=== PATIENT | male | born 1960 | race Caucasian/White ===

== ENCOUNTER → 2016-10-26 | Outpatient (CLI) | payer OTHER ==
[~2016-10-26] VITALS: Ht 180.3 cm; Wt 98.4 kg
[~2016-10-26] MED LIST: LIDOCAINE 2% INJ 100 MG/5 ML SDV (FOR ANES.) As Ordered ONE; NS 1,000 ML IV SCH; PRIL20CA9 PO; PROPOFOL 200 MG/20 ML VIAL As Ordered ONE; ROSU10TA PO
--- NOTE | 2016-10-26 11:23 | ROOR ---
Patient Name: Minh Jaquez Procedure Date: 10/26/2016 11:04 AM Date of : 1960 Age: 56 [facility]: [facility] Gender: Male Note Status: Finalized Procedure: Upper GI endoscopy + Biopsies Indications: Heartburn, Follow-up of Darnell's esophagus Providers: Dario Jiang MD Referring MD: JENNIFER [facility] JENNIFER MAVictor Manuel [facility], Admin. Requesting Provider: Medicines: Monitored Anesthesia Care Complications: No immediate complications. Procedure: Pre-Anesthesia Assessment: - The heart rate, respiratory rate, oxygen saturations, blood pressure, adequacy of pulmonary ventilation, and response to care were monitored throughout the procedure. The Endoscope was introduced through the mouth, and advanced to the second part of duodenum. The upper GI endoscopy was accomplished without difficulty. The patient tolerated the procedure well. Findings: The Z-line was irregular and was found 35 cm from the incisors. Multiple biopsies were obtained with cold forceps for evaluation to rule out Darnell's Esophagus randomly at the gastroesophageal junction. A medium-sized hiatal hernia was present. No other significant abnormalities were identified in a careful examination of the stomach. The exam of the duodenum was otherwise normal. Impression: - Z-line irregular, 35 cm from the incisors. - Medium-sized hiatal hernia. - Multiple biopsies were obtained at the gastroesophageal junction. - The examination was otherwise normal. Recommendation: - Patient has a contact number available for emergencies. The signs and symptoms of potential delayed complications were discussed with the patient. Return to normal activities tomorrow. Written discharge instructions were provided to the patient. - High fiber diet. - Discharge patient to home. - Follow an antireflux regimen. - Continue present medications. - Await pathology results. - Telephone GI clinic for pathology results in 1 week. - Return to referring physician. - The findings and recommendations were discussed with the patient's family. Dario Jiang MD Dario Jiang MD 10/26/2016 11:23:10 AM This report has been signed electronically. Number of Addenda: 0 Note Initiated On: 10/26/2016 11:04 AM Estimated Blood Loss: Estimated blood loss: none.
--- NOTE | 2016-10-26 11:42 | ROOR ---
Patient Name: Minh Jaquez Procedure Date: 10/26/2016 11:05 AM Date of : 1960 Age: 56 Room: [facility] Gender: Male Note Status: Finalized Procedure: Colonoscopy to Cecum + Cold Snare Polypectomy Indications: High risk colon cancer surveillance: Personal history of colonic polyps Providers: Dario Jiang MD Referring MD: JENNIFER [facility] JENNIFER MTVictor Manuel [facility], Admin. Requesting Provider: Medicines: Monitored Anesthesia Care Complications: No immediate complications. Procedure: Pre-Anesthesia Assessment: - The heart rate, respiratory rate, oxygen saturations, blood pressure, adequacy of pulmonary ventilation, and response to care were monitored throughout the procedure. The Colonoscope was introduced through the anus and advanced to the cecum, identified by appendiceal orifice and ileocecal valve. The colonoscopy was performed without difficulty. The patient tolerated the procedure well. The quality of the bowel preparation was excellent. Findings: The perianal and digital rectal examinations were normal. Non-bleeding internal hemorrhoids were found during retroflexion. The hemorrhoids were small and Grade I (internal hemorrhoids that do not prolapse). Scattered small-mouthed diverticula were found in the recto-sigmoid colon, sigmoid colon and descending colon. A small polyp was found in the hepatic flexure. The polyp was sessile. The polyp was removed with a cold snare. Resection and retrieval were complete. The exam was otherwise without abnormality on direct and retroflexion views. Impression: - Non-bleeding internal hemorrhoids. - Diverticulosis in the recto-sigmoid colon, in the sigmoid colon and in the descending colon. - One small polyp at the hepatic flexure, removed with a cold snare. Resected and retrieved. - The examination was otherwise normal on direct and retroflexion views. - The exam was otherwise normal to the cecum. Recommendation: - Patient has a contact number available for emergencies. The signs and symptoms of potential delayed complications were discussed with the patient. Return to normal activities tomorrow. Written discharge instructions were provided to the patient. - High fiber diet. - Discharge patient to home. - Continue present medications. - Await pathology results. - Telephone GI clinic for pathology results in 1 week. - Repeat colonoscopy in 5 years for surveillance based on pathology results. - Return to referring physician. - The findings and recommendations were discussed with the patient's family. Dario Jiang MD Dario Jiang MD 10/26/2016 11:41:31 AM This report has been signed electronically. Number of Addenda: 0 Note Initiated On: 10/26/2016 11:05 AM Estimated Blood Loss: Estimated blood loss: none.
[2016-10-26 12:00] VITALS: BP 118/80
== END | disposition home or self-care (01) ==
LOC: M OPP 09:41
PROVIDERS: ATTEND Internal Medicine Gastroenterology
DX: Z12.11 Encounter for screening for malignant neoplasm of colon (principal); K64.0 First degree hemorrhoids; K57.30 Diverticulosis of large intestine without perforation or abscess without bleeding; D12.3 Benign neoplasm of transverse colon; R12 Heartburn; K22.70 Barrett's esophagus without dysplasia; K22.8 Other specified diseases of esophagus; K44.9 Diaphragmatic hernia without obstruction or gangrene; E78.00 Pure hypercholesterolemia, unspecified; R06.83 Snoring; Z87.891 Personal history of nicotine dependence; Z88.8 Allergy status to other drugs, medicaments and biological substances

== ENCOUNTER → 2017-06-06 | Outpatient (REF) | payer OTHER ==
[~2017-06-06] MED LIST changes: +CRES10TA32 PO; -LIDOCAINE 2% INJ 100 MG/5 ML SDV (FOR ANES.) As Ordered ONE; -NS 1,000 ML IV SCH; -PROPOFOL 200 MG/20 ML VIAL As Ordered ONE; -ROSU10TA PO
== END ==
LOC: M SFHCADAM 08:22
PROVIDERS: ATTEND Physician Assistant Medical
DX: E55.9 Vitamin D deficiency, unspecified (principal)

== ENCOUNTER → 2018-06-19 | Outpatient (REF) | payer OTHER ==
[2018-06-19 13:27] LABS: BASO % 0.5 % (0.0-1.0); EOS # 0.2 10^3/uL (0.0-0.50); EOS % 3.4 % (0.0-3.0); HEMATOCRIT 46.9 % (42.0-52.0); HEMOGLOBIN 16.1 g/dl (13.5-17.5); IMMATURE GRANULOCYTE % 0.2 % (0-3.0); LYMPH # 1.7 10^3/uL (1.5-4.5); LYMPH % 28.4 % (24.0-44.0); MEAN CORPUSCULAR HEMOGLOBIN 31.9 pg (27.0-33.0); MEAN CORPUSCULAR HGB CONC 34.3 g/dl (32.0-36.5); MEAN CORPUSCULAR VOLUME 92.9 fl (80.0-96.0); MONO # 0.5 10^3/uL (0.0-0.8); MONO % 8.5 % (0.0-5.0); NEUTROPHILS # 3.5 10^3/uL (1.8-7.7); PLATELET COUNT, AUTOMATED 224 10^3/uL (150-450); RED BLOOD COUNT 5.05 10^6/uL (4.30-6.10); WHITE BLOOD COUNT 5.9 10^3/uL (4.0-10.0)
[2018-06-19 14:18] LABS: TOTAL 25(OH) VITAMIN D 34.4 NG/ML (30.0-100.0)
[2018-06-19 14:31] LABS: ALBUMIN 3.8 GM/DL (3.2-5.2); ALBUMIN/GLOBULIN RATIO 1.27 (1.00-1.93); ALKALINE PHOSPHATASE 53 U/L (45-117); ALT/SGPT 48 U/L (12-78); ANION GAP 9 MEQ/L (8-16); AST/SGOT 27 U/L (7-37); BILIRUBIN,TOTAL 0.8 MG/DL (0.2-1.0); BLOOD UREA NITROGEN 21 MG/DL (7-18); CALCIUM LEVEL 8.7 MG/DL (8.8-10.2); CARBON DIOXIDE LEVEL 25 MEQ/L (21-32); CHLORIDE LEVEL 107 MEQ/L (98-107); CHOLESTEROL LEVEL 178 MG/DL (<200); CHOLESTEROL RISK RATIO 3.358 (<5); CREATININE FOR GFR 1.03 MG/DL (0.70-1.30); GLOMERULAR FILTRATION RATE > 60.0 (>49); GLUCOSE, FASTING 92 MG/DL (70-100); HDL CHOLESTEROL 53 MG/DL (>40); LDL CHOLESTEROL 97 MG/DL (<100); NON-HDL-C 125 MG/DL; POTASSIUM SERUM 4.3 MEQ/L (3.5-5.1); PSA SCREENING 2.81 NG/ML (< 4.0); SODIUM LEVEL 141 MEQ/L (136-145); TOTAL PROTEIN 6.8 GM/DL (6.4-8.2); TRIGLYCERIDES LEVEL 140 MG/DL (<150)
== END ==
LOC: M SFHCADAM 07:48
DX: E78.5 Hyperlipidemia, unspecified (principal); E55.9 Vitamin D deficiency, unspecified; K21.9 Gastro-esophageal reflux disease without esophagitis; E66.9 Obesity, unspecified; Z12.5 Encounter for screening for malignant neoplasm of prostate

== ENCOUNTER 2019-01-15 09:33 | Day surgery (SDC) | payer OTHER ==
[~2019-01-15] VITALS: Ht 180.3 cm; Wt 93.9 kg
[~2019-01-15 09:33] MED LIST changes: +AUGM0.05 EX; +CRES10TA PO; -CRES10TA32 PO; +NS 1,000 ML IV ONE; +OMEP20CA3 PO
[2019-01-15] MEDS ORDERED: LIDOCAINE 2% INJ 100 MG/5 ML SDV (FOR ANES.) As Ordered ONE (10:52)
[2019-01-15] MEDS ORDERED: PROPOFOL 200 MG/20 ML VIAL As Ordered ONE (10:52)
--- NOTE | 2019-01-15 11:04 | ROOR ---
Patient Name: Minh Jaquez Procedure Date: 01/15/2019 10:48 AM Date of : 1960 Age: 58 Room: [facility] Gender: Male Note Status: Finalized Procedure: Upper Endoscopy + Biopsies Indications: Follow-up of Danrell's esophagus Providers: Dario Jiang MD Referring MD: CARLTON Acosta Requesting Provider: Medicines: Monitored Anesthesia Care Complications: No immediate complications. Procedure: Pre-Anesthesia Assessment: - The heart rate, respiratory rate, oxygen saturations, blood pressure, adequacy of pulmonary ventilation, and response to care were monitored throughout the procedure. The Endoscope was introduced through the mouth, and advanced to the second part of duodenum. The upper GI endoscopy was accomplished without difficulty. The patient tolerated the procedure well. Findings: The Z-line was irregular and was found 37 cm from the incisors. Multiple biopsies were obtained with cold forceps for evaluation to rule out Darnell's Esophagus randomly at the gastroesophageal junction. A medium-sized hiatal hernia was present. No other significant abnormalities were identified in a careful examination of the stomach. The exam of the duodenum was otherwise normal. Impression: - Z-line irregular, 37 cm from the incisors. - Medium-sized hiatal hernia. - Multiple biopsies were obtained at the gastroesophageal junction. - The examination was otherwise normal. Recommendation: - Patient has a contact number available for emergencies. The signs and symptoms of potential delayed complications were discussed with the patient. Return to normal activities tomorrow. Written discharge instructions were provided to the patient. - High fiber diet. - Discharge patient to home. - Follow an antireflux regimen. - Continue present medications. - Await pathology results. - Telephone GI clinic for pathology results in 1 week. - Return to referring physician. - The findings and recommendations were discussed with the patient's family. Dario Jiang MD Dario Jiang MD 01/15/2019 11:04:14 AM Electronically signed by Dario Jiang MD Number of Addenda: 0 Note Initiated On: 01/15/2019 10:48 AM Estimated Blood Loss: Estimated blood loss: none.
[2019-01-15 11:25] VITALS: BP 140/91
== END 2019-01-15 11:37 | disposition home or self-care (01) ==
LOC: M OPP 09:33
PROVIDERS: ATTEND Internal Medicine Gastroenterology
DX: K22.70 Barrett's esophagus without dysplasia (principal); K22.8 Other specified diseases of esophagus; K44.9 Diaphragmatic hernia without obstruction or gangrene

== ENCOUNTER → 2019-01-29 | Outpatient (REF) | payer OTHER ==
[~2019-01-29] MED LIST changes: -NS 1,000 ML IV ONE
[2019-01-29 13:43] LABS: APPEARANCE, URINE CLEAR (CLEAR); BACTERIA, URINE AUTO NEGATIVE (NEGATIVE); BILIRUBIN, URINE AUTO NEGATIVE (NEGATIVE); BLOOD, URINE BLOOD NEGATIVE (NEGATIVE); COLOR, URINE YELLOW (YELLOW); GLUCOSE, URINE (UA) AUTO NEGATIVE (NEGATIVE); KETONE, URINE AUTO NEGATIVE (NEGATIVE); LEUKOCYTE ESTERASE, URINE AUTO NEGATIVE (NEGATIVE); MUCUS, URINE SMALL (NEGATIVE); NITRITE, URINE AUTO NEGATIVE (NEGATIVE); PROTEIN, URINE AUTO NEGATIVE (NEGATIVE); RBC, URINE AUTO 0 /HPF (0-3); SPECIFIC GRAVITY URINE AUTO 1.014 (1.002-1.035); SQUAMOUS EPITHELIAL CELL UR AU 0 /HPF (0-6); UROBILINOGEN, URINE AUTO 0.2 mg/dL (0.0-2.0); WBC, URINE AUTO 0 /HPF (0-3)
== END ==
LOC: M SFHCADAM 12:14
PROVIDERS: ATTEND Physician Assistant Medical
DX: R31.21 Asymptomatic microscopic hematuria (principal); I10 Essential (primary) hypertension

== ENCOUNTER → 2020-04-14 | Outpatient (CLI) | payer OTHER ==
[~2020-04-14] MED LIST changes: +OMEP1CAP73 PO; -OMEP20CA3 PO
--- NOTE | 2020-04-14 12:32 | REP ---
LEFT SHOULDER, THREE VIEWS: There is no evidence of an acute fracture, dislocation, or intrinsic bone disease. IMPRESSION: No fracture or dislocation. Electronically Signed by Alan Puente MD 04/15/2020 04:43 P
== END ==
LOC: M ADAMS 09:27
PROVIDERS: ATTEND Physician Assistant Medical
DX: M25.512 Pain in left shoulder (principal); R20.2 Paresthesia of skin

== ENCOUNTER → 2021-01-29 | Outpatient (REF) | payer OTHER ==
[2021-01-29 10:15] LABS: BASO % 0.7 % (0.0-1.0); EOS # 0.1 10^3/uL (0.0-0.5); EOS % 2.1 % (0.0-3.0); HEMATOCRIT 50.9 % (42.0-52.0); HEMOGLOBIN 17.9 g/dl (13.5-17.5); LYMPH # 2.1 10^3/uL (1.5-5.0); LYMPH % 35.7 % (24.0-44.0); MEAN CORPUSCULAR HEMOGLOBIN 31.5 pg (27.0-33.0); MEAN CORPUSCULAR HGB CONC 35.2 g/dl (32.0-36.5); MEAN CORPUSCULAR VOLUME 89.5 fl (80.0-96.0); MONO # 0.6 10^3/uL (0.0-0.8); MONO % 9.5 % (2.0-8.0); NEUTROPHILS % 51.5 % (36.0-66.0); PLATELET COUNT, AUTOMATED 197 10^3/uL (150-450); RED BLOOD COUNT 5.69 10^6/uL (4.30-6.10); WHITE BLOOD COUNT 5.8 10^3/uL (4.0-10.0)
[2021-01-29 10:52] LABS: ALBUMIN 3.9 GM/DL (3.2-5.2); ALT/SGPT 39 U/L (12-78); BILIRUBIN,TOTAL 1.3 MG/DL (0.2-1.0); BLOOD UREA NITROGEN 14 MG/DL (7-18); CALCIUM LEVEL 9.4 MG/DL (8.8-10.2); CARBON DIOXIDE LEVEL 25 MEQ/L (21-32); CHLORIDE LEVEL 106 MEQ/L (98-107); CHOLESTEROL LEVEL 192 MG/DL (<200); CHOLESTEROL RISK RATIO 3.555 (<5); CREATININE FOR GFR 1.06 MG/DL (0.70-1.30); GLOMERULAR FILTRATION RATE > 60.0 (>49); GLUCOSE, FASTING 99 MG/DL (70-100); HDL CHOLESTEROL 54 MG/DL (>40); LDL CHOLESTEROL 113 MG/DL (<100); NON-HDL-C 138 MG/DL; POTASSIUM SERUM 4.4 MEQ/L (3.5-5.1); SODIUM LEVEL 139 MEQ/L (136-145); TOTAL PROTEIN 7.3 GM/DL (6.4-8.2); TRIGLYCERIDES LEVEL 126 MG/DL (<150)
== END ==
LOC: M SFHCADAM 08:13
PROVIDERS: ATTEND Physician Assistant Medical
DX: I26.99 Other pulmonary embolism without acute cor pulmonale (principal)

== ENCOUNTER → 2021-02-09 | Outpatient (CLI) | payer OTHER ==
--- NOTE | 2021-02-09 15:56 | REP ---
INDICATION: PAIN. COMPARISON: None TECHNIQUE: Four views FINDINGS: No acute fracture, dislocation, or subluxation. The AC joint GH joint relationships are within normal limits. IMPRESSION: Within normal limits <Electronically signed by Lucho Sanderson > 02/09/21 [id number]
--- NOTE | 2021-02-10 07:35 | REP ---
INDICATION: PAIN. COMPARISON: None. TECHNIQUE: AP, lateral, flexion/extension, bilateral oblique, swimmer's and open mouth views of the cervical spine. FINDINGS: Focal advanced degenerative changes at C5-6 and C6-7 includes osteophytosis, endplate sclerosis/heterogeneity, disc space narrowing, and facet hypertrophy. Remainder of the examination is essentially age-appropriate. No acute fracture/compression injury or subluxation. IMPRESSION: Advanced focal degenerative changes at C5-6 and C6-7. <Electronically signed by Minh Patterson > 02/10/21 0731
== END ==
LOC: M SOG 14:12
PROVIDERS: ATTEND Orthopaedic Surgery Sports Medicine
DX: M54.12 Radiculopathy, cervical region (principal); M75.42 Impingement syndrome of left shoulder; M50.322 Other cervical disc degeneration at C5-C6 level; M50.323 Other cervical disc degeneration at C6-C7 level

== ENCOUNTER → 2021-03-06 | Outpatient (CLI) | payer OTHER ==
--- NOTE | 2021-03-06 14:18 | REPVR ---
PROCEDURE INFORMATION: Exam: MR Cervical Spine Without Contrast Exam date and time: 03/06/2021 10:14 AM Age: 60 years old Clinical indication: Patient HX: Neck pain stiffness; Additional info: Radiculopathy c region TECHNIQUE: Imaging protocol: Multiplanar magnetic resonance images of the cervical spine without contrast. COMPARISON: CR SPINE CERVICAL W/AP/FLEX/EXT 02/09/2021 2:43 PM FINDINGS: Vertebrae: Unremarkable. Spinal cord: Normal signal. Mild cord compression at C6/7. C2-C3: No significant disc disease. No significant spinal stenosis. C3-C4: There is disc desiccation. There is bilateral uncovertebral joint arthropathy, worse on the left. There is moderate left-sided neuroforaminal narrowing. C4-C5: There is degenerative disc disease including disc space narrowing and dessication. There is a moderate disc/osteophyte complex that flattens the ventral thecal sac. There is bilateral uncovertebral joint arthropathy, worse on the left. There is moderate left-sided neuroforaminal narrowing. There is mild spinal canal stenosis. C5-C6: There is disc space narrowing and desiccation. There are moderate degenerative end plate changes at this level. There is a moderate disc/osteophyte complex that flattens the ventral thecal sac. There is moderate bilateral uncovertebral joint arthropathy. There is moderate bilateral neuroforaminal narrowing. There is mild/moderate spinal canal stenosis. C6-C7: There is degenerative disc disease including disc space narrowing and dessication. There is a moderate disc/osteophyte complex that flattens the ventral thecal sac. There is a moderate left subarticular disc protrusion with an extruded disc fragment that causes severe narrowing of the left lateral recess and left neural foramen. The disc herniation displaces the thecal sac posteriorly and toward the right. There is effacement of the ventral subarachnoid space and indentation of the ventral cervical cord. There is moderate spinal canal stenosis. C7-T1: There is disc desiccation. Soft tissues: Unremarkable. IMPRESSION: Multilevel degenerative changes with variable degrees of spinal canal and neuroforaminal narrowing. Large left subarticular extruded disc herniation at C6/7 causing mild cord compression as described above. Please see details above. Electronically signed by: Mann Castaneda On 03/06/2021 14:17:36 PM
== END ==
LOC: M RAD 10:07
PROVIDERS: ATTEND Orthopaedic Surgery Sports Medicine
DX: M50.223 Other cervical disc displacement at C6-C7 level (principal); M50.31 Other cervical disc degeneration, high cervical region; M50.321 Other cervical disc degeneration at C4-C5 level; M50.322 Other cervical disc degeneration at C5-C6 level; M50.323 Other cervical disc degeneration at C6-C7 level

== ENCOUNTER → 2021-03-31 | Outpatient (CLI) | payer OTHER ==
--- NOTE | 2021-04-02 00:15 | ECWPNPC ---
PATIENT NAME: REYES PRUITT : 1960 GENDER: MALE VISIT DATE: 03/31/2021 DISCHARGE DATE: 03/31/21 1121 VISIT LOCKED DATE TIME: PHYSICIAN: [facility] PHYSICIAN PAGER NO: ACTIVE RESOURCE: [facility] REASON FOR APPOINTMENT 1. LEFT CERVICAL SPINE C6-7 RADICULOPATHY HISTORY OF PRESENT ILLNESS GENERAL: 60-YEAR-OLD GENTLEMAN BEING REFERRED BY LYNDA MARKHAM PA-C, [facility] IN [place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employer] - RETIRED. DIET: LOW FAT, LOW CHOLESTEROL. EXERCISE: WALKS. MARITAL STATUS: - TWO CHILDREN. HOUSING: OWNS HOME. HOSPITALIZATION/MAJOR DIAGNOSTIC PROCEDURE BLOOD CLOT IN LUNG 2020 REVIEW OF SYSTEMS CONSTITUTIONAL: ANY RECENT FEVER NO . RECENT ILLNESS DENIES . CHILLS NO . FEVER DENIES . WEIGHT LOSS DENIES . WEIGHT CHANGE OF UNKNOWN REASONS NO . MUSCULOSKELETAL: ANY UNUSUAL JOINT PAIN OR SWELLING NOT MENTIONED NO . SYSTEMIC LUPUS NO . ANY NEUROMUSCULAR DISORDER NOT MENTIONED NO . LYME DISEASE NO . JOINT PAIN DENIES . JOINT STIFFNESS DENIES . GASTROENTEROLOGY: BOWEL INCONTINENCE DENIES . ANY NEW CHANGE IN BOWEL CONTROL? NO . HISTORY OF LIVER DISORDER NOT MENTIONED NO . HISTORY OF UNUSUAL ABDOMINAL PAIN OR CRAMPING NOT MENTIONED NO . BLOOD IN STOOL DENIES . NO CONSTIPATION. GENITOURINARY: ANY NEW CHANGE IN BLADDER CONTROL? NO . ANY RENAL/KIDNEY CONDITON NOT MENTIONED NO . HEMATOLOGY/LYMPH: DENIES . BLEEDING DISORDER DENIES . NEUROLOGY: HISTORY OF TBI NOT MENTIONED NO . OTHER NEW NUMBNESS OR PAIN PATTERNS NOT MENTIONED NO . NEW ONSET DIZZINESS OR NEUROLOGICAL CHANGES NOT MENTIONED NO . HISTORY OF SEVERE HEADACHES NOT MENTIONED NO, DENIES . SEIZURES DENIES . HISTORY OF STROKE OR NEUROLOGICAL DISORDER NOT MENTIONED NO . CARDIOLOGY: HEART SURGERY NO . CONGESTIVE HEART FAILURE/FLUID OVERLOAD NOT MENTIONED NO . HISTORY OF CHEST PAIN,IRREGULAR HEART BEAT NOT MENTIONED NO, DENIES . SHORTNESS OF BREATH DENIES . RESPIRATORY: SHORTNESS OF BREATH ON EXERTION, WHEEZES, UNUSUAL COUGH NOT MENTIONED NO . COUGH DENIES . SHORTNESS OF BREATH DENIES . ENDOCRINOLOGY: THYROID DISEASE DENIES . ADRENAL GLAND OR THYROID DISORDERS NOT MENTIONED NO . DIABETES DENIES . UNUSUAL URINATION, DIZZINESS OR LETHARGY NOT MENTIONED NO . HEENT: CHANGE IN VISION DENIES . LOSS OF HEARING DENIES . TROUBLE SWALLOWING DENIES . PSYCHOLOGY: ANXIETY DENIES . DEPRESSION DENIES . UROLOGY: URINARY INCONTINENCE DENIES . BLOOD IN URINE DENIES . VITAL SIGNS WT 198.4 LBS, HT 5'11", BMI 27.67 INDEX, BP 121/80 MM HG, HR 91 /MIN, RR 18 /MIN, TEMP 96.9 F, OXYGEN SAT % 100%, SAFE IN ENV? (Y/N) YES, NA INITIALS WHITLEYT.NICK LIU. EXAMINATION GENERAL EXAMINATION: HEENT:HEAD:, NORMOCEPHALIC, EYES:, EYES NORMAL, NOSE:, NOSE CLEAR, THROAT: NORMAL. LUNGS:LUNG SOUNDS ARE CLEAR. HEART:HEART RATE REGULAR. ABDOMEN:SOFT AND NOT TENDER, NON-DISTENDED. MUSCULOSKELETAL:*. LUMBAR:MUSCLE STRENGTH TESTING 5/5 BILATERAL, PALPATION: NEGATIVE FOR PAIN OVER L/S SPINE. NEGATIVE FOR PAIN OVER L/S PARSPINALS. THORACIC SPINE:NEGATIVE FOR PAIN WITH PALPATION OF THORACIC SPINE. NEGATIVE FOR PAIN WITH PALPATION OF THORACIC PARASPINAL. CERVICAL:NEGATIVE FOR PAIN WITH PALPATION OF CERVICAL SPINE. NEGATIVE FOR PAIN WITH PALPATION OF CERVICAL PARASPINALS. NEGATIVE FOR PAIN WITH PALPATION OF TRAPEZIUS BILAT. SKIN:NORMAL, NO RASH. NEUROLOGIC EXAM:REPORTS NUMBNESS OVER LEFT ARM IN ITS ENTIRETY. REPORTING NUMBNESS LEFT HAND AND FINGERS IN ITS ENTIRETY.. DIAGNOSTIC:MRI C SPINE-DONE 6216 NCS UPPER EXTREMITIES-01/2021. ASSESSMENTS CERVICAL DISC DISORDER AT C5-C6 LEVEL WITH RADICULOPATHY - M50.122 (PRIMARY) TREATMENT CERVICAL DISC DISORDER AT C5-C6 LEVEL WITH RADICULOPATHY SALINE LOCK (ORDERED FOR 04/14/2021) MEDICATION: VALIUM TAB 10MG ORALLY (DIAZEPAM) (ORDERED FOR 04/14/2021) MEDICATION: OXYCODONE HCL TAB 10MG ORALLY (ORDERED FOR 04/14/2021) NOTES: CERVICAL EPIDURAL STERIOD INJECTION PRINTED AND REVIEWED PRE PROCEDURE INFORMATION, PATIENT VERBALIZED UNDERSTANDING KRISTINE LIU. OTHERS CLINICAL NOTES: ISTOP REGISTRY REVIEWED AND DEMONSTRATES COMPLIANCE. BRINGS IN MEDICATIONS WHICH IS APPROPRIATE FOR WHAT WAS DISPENSED. RECENT URINE TOXICOLOGY REVIEWED. NO UNAUTHORIZED MEDICATIONS. NO ILLICIT SUBSTANCES AND PRESCRIBED MEDICATIONS WERE PRESENT. . PROCEDURE CODES FA211 ESTABILISHED PATIENT [facility] FACILITY CHARGE DISPOSITION & COMMUNICATION FOLLOW UP POST (REASON: CERVICAL EPIDURAL STERIOD INJECTION) ELECTRONICALLY SIGNED BY SHYANNE YANG ON 04/01/2021 AT 01:08 PM EDT DISCLAIMER : THIS IS A VISIT SUMMARY EXTRACTED FROM THE [employer] [employer] [facility] CHART. IT IS NOT A COPY OF THE [employer] PROGRESS NOTE. SERGIO
== END ==
LOC: M PAIN 10:30
PROVIDERS: ATTEND Nurse Practitioner Family
DX: M50.122 Cervical disc disorder at C5-C6 level with radiculopathy (principal); K21.9 Gastro-esophageal reflux disease without esophagitis; Z87.891 Personal history of nicotine dependence; Z79.899 Other long term (current) drug therapy

== ENCOUNTER → 2021-06-21 | Outpatient (CLI) | payer OTHER | LOC: M LABSMTC 09:09 | PROVIDERS: ATTEND Orthopaedic Surgery | DX: Z01.812 Encounter for preprocedural laboratory examination (principal); Z20.822 Contact with and (suspected) exposure to COVID-19 ==

== ENCOUNTER → 2022-04-18 | Outpatient (CLI) | payer OTHER ==
[2022-04-18 09:33] LABS: BASO % 0.6 % (0.0-1.0); EOS # 0.1 10^3/uL (0.0-0.5); EOS % 2.5 % (0.0-3.0); HEMATOCRIT 46.2 % (42.0-52.0); HEMOGLOBIN 16.4 g/dl (13.5-17.5); LYMPH # 1.7 10^3/uL (1.5-5.0); LYMPH % 35.3 % (24.0-44.0); MEAN CORPUSCULAR HEMOGLOBIN 32.6 pg (27.0-33.0); MEAN CORPUSCULAR HGB CONC 35.5 g/dl (32.0-36.5); MEAN CORPUSCULAR VOLUME 91.8 fl (80.0-96.0); MONO # 0.5 10^3/uL (0.0-0.8); MONO % 10.3 % (2.0-8.0); NEUTROPHILS # 2.4 10^3/uL (1.5-8.5); NEUTROPHILS % 51.1 % (36.0-66.0); PLATELET COUNT, AUTOMATED 201 10^3/uL (150-450); RED BLOOD COUNT 5.03 10^6/uL (4.30-6.10); WHITE BLOOD COUNT 4.8 10^3/uL (4.0-10.0)
[2022-04-18 10:10] LABS: ALBUMIN 3.5 GM/DL (3.2-5.2); ALT/SGPT 45 U/L (12-78); BILIRUBIN,TOTAL 0.8 MG/DL (0.2-1.0); BLOOD UREA NITROGEN 13 MG/DL (7-18); CALCIUM LEVEL 8.8 MG/DL (8.8-10.2); CARBON DIOXIDE LEVEL 22 MEQ/L (21-32); CHLORIDE LEVEL 110 MEQ/L (98-107); CHOLESTEROL LEVEL 177 MG/DL (<200); CHOLESTEROL RISK RATIO 3.105 (<5); CREATININE FOR GFR 1.04 MG/DL (0.70-1.30); GLOMERULAR FILTRATION RATE > 60.0 (>49); GLUCOSE, FASTING 105 MG/DL (70-100); HDL CHOLESTEROL 57 MG/DL (>40); LDL CHOLESTEROL 105 MG/DL (<100); NON-HDL-C 120 MG/DL; POTASSIUM SERUM 4.4 MEQ/L (3.5-5.1); PROSTATIC SPECIFIC AG MONITOR 4.42 NG/ML (< 4.00); SODIUM LEVEL 140 MEQ/L (136-145); TOTAL PROTEIN 6.9 GM/DL (6.4-8.2); TRIGLYCERIDES LEVEL 76 MG/DL (<150)
== END ==
LOC: M LAB 08:58
PROVIDERS: ATTEND Internal Medicine
DX: Z86.711 Personal history of pulmonary embolism (principal); E78.5 Hyperlipidemia, unspecified; Z12.5 Encounter for screening for malignant neoplasm of prostate

== ENCOUNTER 2024-01-22 08:19 | Day surgery (SDC) | payer MEDICARE, OTHER ==
[~2024-01-22] VITALS: Ht 180.3 cm; Wt 95.0 kg
[~2024-01-22 08:19] MED LIST changes: +NS 1,000 ML IV ONE; +OMEP40CA5 PO; +XARE10TA PO
[2024-01-22 08:41] VITALS: TEMP 97.2
[2024-01-22] MEDS ORDERED: propofoL 500 MG/50 ML VIAL As Ordered ONE (08:46)
[2024-01-22] MEDS ORDERED: LIDOCAINE 2% 100MG/5ML SDV (FOR ANES.) As Ordered ONE (09:07)
[2024-01-22] MEDS ORDERED: fentaNYL 100 MCG/2 ML INJECTION As Ordered ONE (09:07)
[2024-01-22 10:58] VITALS: BP 132/70; O2SAT 98
== END 2024-01-22 10:56 | disposition home or self-care (01) ==
LOC: M OPP 08:19
PROVIDERS: ATTEND Internal Medicine Gastroenterology
DX: Z12.11 Encounter for screening for malignant neoplasm of colon (principal); Z86.010 Personal history of colon polyps; D12.6 Benign neoplasm of colon, unspecified; K64.0 First degree hemorrhoids; K57.30 Diverticulosis of large intestine without perforation or abscess without bleeding; K22.89 Other specified disease of esophagus; K44.9 Diaphragmatic hernia without obstruction or gangrene; K31.A0 Gastric intestinal metaplasia, unspecified; R12 Heartburn; Z87.891 Personal history of nicotine dependence; Z79.01 Long term (current) use of anticoagulants; Z79.02 Long term (current) use of antithrombotics/antiplatelets; Z79.899 Other long term (current) drug therapy
CPT/HCPCS: 43239; 45380; 88305; J3010

== ENCOUNTER → 2024-03-14 | Outpatient (REF) | payer MEDICARE, OTHER ==
[~2024-03-14] MED LIST changes: -NS 1,000 ML IV ONE
== END ==
LOC: M SFHCADAM 14:25
PROVIDERS: ATTEND Physician Assistant
DX: R97.20 Elevated prostate specific antigen [PSA] (principal)

== ENCOUNTER → 2024-04-16 | Outpatient (REF) | payer MEDICARE, OTHER | LOC: M SMT PRO 13:13 | PROVIDERS: ATTEND Urology | DX: C61 Malignant neoplasm of prostate (principal); R97.20 Elevated prostate specific antigen [PSA]; F17.220 Nicotine dependence, chewing tobacco, uncomplicated; Z80.42 Family history of malignant neoplasm of prostate ==

== ENCOUNTER → 2024-06-26 | Outpatient (CLI) | payer MEDICARE, OTHER ==
[2024-06-26 10:31] LABS: HEMATOCRIT 47.8 % (42.0-52.0); HEMOGLOBIN 16.6 g/dl (13.5-17.5); MEAN CORPUSCULAR HEMOGLOBIN 31.3 pg (27.0-33.0); MEAN CORPUSCULAR HGB CONC 34.7 g/dl (32.0-36.5); PLATELET COUNT, AUTOMATED 212 10^3/uL (150-450); RED BLOOD COUNT 5.31 10^6/uL (4.30-6.10); WHITE BLOOD COUNT 5.6 10^3/uL (4.0-10.0)
[2024-06-26 10:47] LABS: INR 1.32
[2024-06-26 11:14] LABS: BLOOD UREA NITROGEN 15 MG/DL (9-23); CALCIUM LEVEL 9.2 MG/DL (8.3-10.6); CARBON DIOXIDE LEVEL 27 MMOL/L (20-31); CHLORIDE LEVEL 107 MMOL/L (98-107); CREATININE FOR GFR 1.02 MG/DL (0.70-1.30); GLOMERULAR FILTRATION RATE > 60.0 (>49); GLUCOSE, FASTING 88 MG/DL (74-106); POTASSIUM SERUM 4.4 MMOL/L (3.5-5.1); SODIUM LEVEL 140 MMOL/L (136-145)
== END ==
LOC: M RAD 09:25
PROVIDERS: ATTEND Urology
DX: Z01.818 Encounter for other preprocedural examination (principal); C61 Malignant neoplasm of prostate; R94.31 Abnormal electrocardiogram [ECG] [EKG]; Z79.01 Long term (current) use of anticoagulants

== ENCOUNTER → 2024-07-08 | Outpatient (REF) | payer MEDICARE, OTHER ==
[~2024-07-08] MED LIST changes: +CLOB0.0526 TOP; +ROSU10TA61 PO
== END ==
LOC: M SMT 10:43
PROVIDERS: ATTEND Urology
DX: C61 Malignant neoplasm of prostate (principal); Z01.818 Encounter for other preprocedural examination; N39.0 Urinary tract infection, site not specified

== ENCOUNTER 2024-07-16 06:16 | Day surgery (SDC) | payer MEDICARE, OTHER ==
[2024-07-16] VITALS (8 sets, daily range): BP systolic 110–145; BP diastolic 79–90; TEMP 97.7–98.8; O2SAT 90–95
[~2024-07-16] VITALS: Ht 180.3 cm; Wt 95.7 kg
[2024-07-16] MEDS ORDERED: LR 1,000 ML IV SCH (06:35)
[2024-07-16] MEDS ORDERED: ROCURONIUM BROMIDE 50MG/5ML VIAL As Ordered ONE (07:01)
[2024-07-16] MEDS ORDERED: propofoL 200 MG/20 ML VIAL As Ordered ONE (07:01)
[2024-07-16] MEDS ORDERED: ACETAMINOPHEN 1000MG 100ML IV BAG As Ordered ONE (07:01)
[2024-07-16] MEDS ORDERED: LIDOCAINE 2% 100MG/5ML SDV (FOR ANES.) As Ordered ONE (07:01)
[2024-07-16] MEDS ORDERED: SUGAMMADEX SODIUM 500 MG/5 ML VIAL (BRIDION) As Ordered ONE (07:01)
[2024-07-16] MEDS ORDERED: ONDANSETRON 4MG 2ML VIAL As Ordered ONE (07:01)
[2024-07-16] MEDS ORDERED: fentaNYL 100 MCG/2 ML INJECTION As Ordered ONE (07:02)
[2024-07-16] MEDS ORDERED: MIDAZOLAM INJ 2MG/2ML VIAL As Ordered ONE (07:02)
[2024-07-16] MEDS ORDERED: ONDANSETRON 4MG 2ML VIAL IV PRN ×2 (07:20→11:25)
[2024-07-16] MEDS ORDERED: PERCOCET 5MG/325MG TAB PO PRN ×2 (07:20)
[2024-07-16] MEDS: HEPARIN SOD (PORCINE) 5000UNITS/ML 1ML VIAL/SYRINGE SQ ONE (07:42)
[2024-07-16] MEDS: ceFAZolin SOD 2 GM in IV 1 EA IV ONE (07:45)
[2024-07-16] MEDS ORDERED: dexmedeTOMIDine (4MCG/ML)200MCG/50ML BTL (PRECEDEX) As Ordered ONE (08:14)
[2024-07-16] MEDS ORDERED: GLYCOPYRROLATE INJ 0.2 MG/ML 2 ML VIAL As Ordered ONE (08:14)
[2024-07-16] MEDS ORDERED: PHENYLephrine 500MCG 5ML (100MCG/ML) SYRINGE As Ordered ONE (09:41)
[2024-07-16] MEDS ORDERED: HYDROmorphone HCL 2MG/ML 1ML VIAL As Ordered ONE (10:00)
[2024-07-16] MEDS ORDERED: KETOROLAC 60MG 2ML VIAL As Ordered ONE (11:14)
[2024-07-16] MEDS: LIDOCAINE 1% MDV 20ML VIAL As Ordered ONE (11:22)
[2024-07-16] MEDS ORDERED: oxyCODONE 5MG TAB PO PRN (11:25)
[2024-07-16] MEDS ORDERED: fentaNYL 100 MCG/2 ML INJECTION IV PRN (11:25)
[2024-07-16] MEDS: MORPHINE 2 MG/ML 1ML VIAL IV PRN (11:55)
[2024-07-16 12:35] LABS: HEMATOCRIT 46.2 % (42.0-52.0); HEMOGLOBIN 16.1 g/dl (13.5-17.5); MEAN CORPUSCULAR HEMOGLOBIN 32.1 pg (27.0-33.0); MEAN CORPUSCULAR HGB CONC 34.8 g/dl (32.0-36.5); MEAN CORPUSCULAR VOLUME 92.2 fl (80.0-96.0); PLATELET COUNT, AUTOMATED 196 10^3/uL (150-450); RED BLOOD COUNT 5.01 10^6/uL (4.30-6.10); WHITE BLOOD COUNT 13.8 10^3/uL (4.0-10.0)
[2024-07-16 13:03] LABS: BLOOD UREA NITROGEN 16 MG/DL (9-23); CALCIUM LEVEL 8.9 MG/DL (8.3-10.6); CARBON DIOXIDE LEVEL 24 MMOL/L (20-31); CHLORIDE LEVEL 106 MMOL/L (98-107); CREATININE FOR GFR 1.07 MG/DL (0.70-1.30); GLOMERULAR FILTRATION RATE > 60.0 (>49); GLUCOSE, FASTING 125 MG/DL (74-106); POTASSIUM SERUM 4.5 MMOL/L (3.5-5.1); SODIUM LEVEL 137 MMOL/L (136-145)
[2024-07-16] MEDS: NS 1,000 ML IV SCH (13:05)
[2024-07-16] MEDS: ceFAZolin SOD 1 GM in D5W MINI-BAG PLUS 50 ML IV SCH (15:08)
[2024-07-16] MEDS: ACETAMINOPHEN 325 MG TAB PO PRN (15:09)
[2024-07-16] MEDS: ROSUVASTATIN 10 MG TAB (CRESTOR) PO SCH (20:25)
[2024-07-16] MEDS: DOCUSATE SODIUM 100MG CAPSULE PO SCH (20:26)
[2024-07-16] MEDS: OMEPRAZOLE 20MG CAP PO SCH (20:26)
[2024-07-16] MEDS: HEPARIN SOD (PORCINE) 5000UNITS/ML 1ML VIAL/SYRINGE SC SCH (20:33)
[2024-07-16] MEDS: CALCIUM CARBONATE 500 MG CHEW U/D PO PRN (23:53)
[2024-07-17] VITALS: BP 109/77; TEMP 98.8; O2SAT 95
[2024-07-17 03:58] VITALS: BP 106/79; TEMP 99.1; O2SAT 93
[2024-07-17 05:57] LABS: HEMATOCRIT 42.4 % (42.0-52.0); HEMOGLOBIN 14.9 g/dl (13.5-17.5); MEAN CORPUSCULAR HEMOGLOBIN 32.2 pg (27.0-33.0); MEAN CORPUSCULAR HGB CONC 35.1 g/dl (32.0-36.5); MEAN CORPUSCULAR VOLUME 91.6 fl (80.0-96.0); PLATELET COUNT, AUTOMATED 194 10^3/uL (150-450); RED BLOOD COUNT 4.63 10^6/uL (4.30-6.10); WHITE BLOOD COUNT 12.9 10^3/uL (4.0-10.0)
[2024-07-17 06:23] LABS: BLOOD UREA NITROGEN 16 MG/DL (9-23); CALCIUM LEVEL 9.3 MG/DL (8.3-10.6); CARBON DIOXIDE LEVEL 26 MMOL/L (20-31); CHLORIDE LEVEL 108 MMOL/L (98-107); GLOMERULAR FILTRATION RATE > 60.0 (>49); GLUCOSE, FASTING 106 MG/DL (74-106); POTASSIUM SERUM 4.5 MMOL/L (3.5-5.1); SODIUM LEVEL 139 MMOL/L (136-145)
[2024-07-17 08:00] VITALS: BP 121/80; TEMP 98.1; O2SAT 95
[2024-07-17] MEDS ORDERED: COLA100C5 PO (08:54)
[2024-07-17] MEDS ORDERED: PERCOCET PO (08:54)
[2024-07-17] MEDS ORDERED: CIPR-249 PO (08:54)
== END 2024-07-17 11:30 | disposition home or self-care (01) ==
LOC: M SDC 06:16 → M MSPAV 12:40 → M SDC 07-17 11:30
PROVIDERS: ATTEND Urology
DX: C61 Malignant neoplasm of prostate (principal); E78.5 Hyperlipidemia, unspecified; K21.9 Gastro-esophageal reflux disease without esophagitis; L40.9 Psoriasis, unspecified; F17.220 Nicotine dependence, chewing tobacco, uncomplicated; Z79.01 Long term (current) use of anticoagulants; Z79.899 Other long term (current) drug therapy; Z86.711 Personal history of pulmonary embolism
CPT/HCPCS: 36415; 55866; 80048; 85027; 86850; 86900; 86901; 88309; 96365; 96366; 96372; J0131; J0665; J0690; J1100; J1171; J1596; J1885; J2250; J2371; J2405; J3010; S2900

== ENCOUNTER → 2024-08-15 | Outpatient (REF) | payer MEDICARE, OTHER ==
[~2024-08-15] MED LIST changes: -AUGM0.05 EX; +AUGM0.0511 EX; +CIPR-249 PO; +COLA100C5 PO; +PERCOCET PO
== END ==
LOC: M SFHCADAM 08:32
PROVIDERS: ATTEND Urology
DX: C61 Malignant neoplasm of prostate (principal)

== ENCOUNTER → 2024-09-20 | Outpatient (CLI) | payer MEDICARE, OTHER | LOC: M RAD 15:37 | PROVIDERS: ATTEND Internal Medicine | DX: Z12.2 Encounter for screening for malignant neoplasm of respiratory organs (principal); F17.211 Nicotine dependence, cigarettes, in remission; R91.1 Solitary pulmonary nodule ==

== ENCOUNTER → 2025-01-20 | Outpatient (CLI) | payer MEDICARE, OTHER | LOC: M LAB 14:54 | PROVIDERS: ATTEND Urology | DX: C61 Malignant neoplasm of prostate (principal) ==

== ENCOUNTER → 2025-04-14 | Outpatient (CLI) | payer MEDICARE, OTHER | LOC: M LAB 08:38 | PROVIDERS: ATTEND Urology | DX: C61 Malignant neoplasm of prostate (principal) ==

== ENCOUNTER → 2025-07-15 | Outpatient (CLI) | payer MEDICARE, OTHER | LOC: M LAB 09:01 | PROVIDERS: ATTEND Urology | DX: C61 Malignant neoplasm of prostate (principal) ==